=== PATIENT | male | born 2000 | race African-American/Black ===

== ENCOUNTER 2019-07-26 17:48 | Emergency (ER) | payer SELFPAY ==
[2019-07-26 17:53] VITALS: BP 145/66
--- NOTE | 2019-07-26 18:06 | ER Document Report ---
HPI - HPI Patient complains to provider of: Avulsion Time Seen by Provider: 07/26/19 17:57 Context: 18-year-old male presented to ED for a skin avulsion to the tip of the right fifth finger while slicing sweet potatoes. He is alert oriented respirations regular nonlabored speaking in full sentences. He states his tetanus shot was last year. Associated Symptoms: Other - Skin avulsion right fifth fingertip Exacerbated by: Movement Relieved by: Denies Similar symptoms previously: No Recently seen / treated by doctor: No - ROS ROS below otherwise negative: Yes - CONSTITUTIONAL Constitutional: DENIES: Fever, Chills - EENT EENT: DENIES: Sore Throat, Ear Pain, Nasal Drainage-Clear, Nasal Drainage- Purulent, Congestion, Eye problems - NEURO Neurology: DENIES: Headache, Weakness, Vision blurred, Dizzinesss / Vertigo - CARDIOVASCULAR Cardiovascular: DENIES: Chest pain - RESPIRATORY Respiratory: DENIES: Trouble Breathing, Coughing - GASTROINTESTINAL Gastrointestinal: DENIES: Abdominal Pain, Nausea, Patient vomiting, Diarrhea, Constipation, Black / Bloody Stools - URINARY Urinary: DENIES: Dysuria, Urgency, Frequency - REPRODUCTIVE Reproductive: DENIES: :, Postmenopausal, Abnormal bleeding / discharge - MUSCULOSKELETAL Musculoskeletal: REPORTS: Extremity pain - Skin avulsion right fifth fing - DERM Skin Color: Normal Skin Problems: Laceration - Skin avulsion right fifth fingertip Past Medical History - General Information source: Patient - Social History Smoking Status: Current Every Day Smoker Cigarette use (# per day): Yes - 4 cigarettes a day Smoking Education Provided: Yes - 4 minutes Frequency of alcohol use: None Drug Abuse: None Occupation: Construction Lives with: Parents Family History: Hypertension Patient has suicidal ideation: No Patient has homicidal ideation: No - Past Medical History Cardiac Medical History: Reports: None Pulmonary Medical History: Reports: None EENT Medical History: Reports: None Neurological Medical History: Reports: None Endocrine Medical History: Reports: None Renal/ Medical History: Reports: None Malignancy Medical History: Reports None GI Medical History: Reports: None Musculoskeletal Medical History: Reports None Skin Medical History: Reports None Psychiatric Medical History: Reports: None Traumatic Medical History: Reports: Hx Fractures - left arm Infectious Medical History: Reports: None Surgical Hx: Negative Past Surgical History: Reports: None - Immunizations Immunizations up to date: Yes Hx Diphtheria, Pertussis, Tetanus Vaccination: Yes - [employer] 18 Vertical Provider Document - CONSTITUTIONAL Agree With Documented VS: Yes Exam Limitations: No Limitations General Appearance: WD/WN, No Apparent Distress - INFECTION CONTROL TRAVEL OUTSIDE OF THE [place] IN LAST 30 DAYS: No - HEENT HEENT: Atraumatic, Normal ENT Exam, Normocephalic, PERRLA - NECK Neck: Normal Inspection, Supple, Thyroid Normal - RESPIRATORY Respiratory: Breath Sounds Normal, No Respiratory Distress, Chest Non-Tender - CARDIOVASCULAR Cardiovascular: Regular Rate, Regular Rhythm, No Murmur - MUSCULOSKELETAL/EXTREMETIES Musculoskeletal/Extremeties: MAEW, FROM, Tender - Tenderness to the end of the r ight fifth finger due to skin avulsion - NEURO Level of Consciousness: Awake Motor/Sensory: No Motor Deficit, No Sensory Deficit, No Pronator Drift Deep Tendon Reflexes: 2+ - DERM Integumentary: Warm, Dry, Laceration - Skin avulsion tip of right fifth finger Course - Re-evaluation Re-evalutation: 07/26/19 18:14 Skin avulsion to right fifth finger cleaned well with surgical scrub, rinsed with 60 cc of saline. Finger was then dressed with bacitracin and Xeroform then Telfa pad and finger gauze. Patient then had a splint applied to protect the end of the finger. Patient was given instructions on how to care for his finger and he was discharged home. He states that he had a tetanus shot a year ago. - Vital Signs Vital signs: Temp Pulse Resp BP Pulse Ox 98.1 F 91 H 18 145/66 H 100 07/26/19 17:50 07/26/19 17:50 07/26/19 17:50 07/26/19 17:50 07/26/19 17:50 Procedures - Immobilization Right Finger 5th digit Immobilizer type: Finger protection Performed by: CHAPIS Post-Proc Neuro Vasc Exam: Normal Alignment checked and good: Yes - Patient had a skin avulsion the finger splint was put on to protect the end Discharge - Discharge Clinical Impression: Skin avulsion right little finger Condition: Stable Disposition: HOME, SELF-CARE Additional Instructions: Avulsion Injury You have an avulsion injury -- a loss of skin which can't be helped by suturing. When large, these injuries can require skin grafting. Smaller defect s or shallow avulsions usually heal well with dressings. Keep the dressing clean and dry. If the bandage becomes wet, remove it, blot the area dry, and apply a fresh dressing. Change the dressings every day. Complete healing may take anywhere from 10 days to two months. The healing time depends on the size and depth of the avulsion and on the amount of crushing of underlying tissues. Re-examination by the physician is often necessary. If any signs of infection occur (swelling, redness, increasing tenderness, red streaks, profuse purulent drainage from the avulsion, tender lumps in the armpit or groin above the avulsion, or fever), see your doctor immediately. Acetaminophen Acetaminophen may be taken for pain relief or fever control. It's much safer than aspirin, offering a wider range of "safe" dosages. It is safe during . Some brand names are Tylenol, Panadol, Datril, Anacin 3, Tempra, and Liquiprin. Acetaminophen can be repeated every four hours. The following are maximum recommended dosages: WEIGHT Dose Drops Elixir Chewable(80mg) (LBS.) drprs=droppers tsp=teaspoon 6 40 mg .4 ml (1/2) 6-11 80 mg .8 ml (full) 1/2 tsp 1 tab 12-16 120 mg 1 1/2 drprs 3/4 tsp 1 1/2 tabs 17-23 160 mg 2 drprs 1 tsp 2 tabs 24-30 240 mg 3 drprs 1 1/2 tsp 3 tabs 30-35 320 mg 2 tsp 4 tabs 36-41 360 mg 2 1/4 tsp 4 1/2 tabs 42-47 400 mg 2 1/2 tsp 5 tabs 48-53 480 mg 3 tsp 6 tabs 54-59 520 mg 3 1/4 tsp 6 1/2 tabs 60-64 560 mg 3 1/2 tsp 7 tabs 65-70 600 mg 3 3/4 tsp 7 1/2 tabs 71-76 640 mg 4 tsp 8 tabs 77-82 720 mg 4 1/2 tsp 9 tabs 83-88 800 mg 5 tsp 10 tabs >89 pounds or adults 650 mg to 900 mg Acetaminophen can be repeated every four hours. Maximum daily dose not to exceed 4000 mg. These maximum recommended dosages are slightly higher than the dosages written on the product container, but these dosages are very safe and well below the toxic dosage for acetaminophen. Ibuprofen Ibuprofen is an excellent, safe drug for pain control. In addition, it has potent antiinflammatory effects which are beneficial, especially in the treatment of injuries, arthritis, or tendonitis. It's best to take ibuprofen with food. Persons with ulcer disease or allergy to aspirin should notify their physician of this before taking ibuprofen. Take the medication exactly as prescribed. Don't take additional doses unless instructed to do so by your doctor. If you develop wheezing, shortness of breath, hives, faintness, stomach pain, vomiting, or dark black stools, return for re-evaluation at once. Please leave the current dressing on for 48 hours unless you get it wet if you get it wet you have to remove it immediately clean the finger and put a stick proof Band-Aid on with some bacitracin NON-SUTURED LACERATION: Your laceration did not require suturing. Some lacerations cannot be sutured because of increased infection risk, while others simply don't need stitches because they are shallow or very short. Your injury should be protected while it heals. Usually complete healing takes 10 to 14 days. Keep the dressing clean and dry, and change it every day. If you notice increasing pain, redness, swelling, drainage, or tender lumps in the armpit or groin above the injury, infection may be present. You should call the doctor at once. SOAP CLEANSING: Gently wash the wound daily using a mild soap (like Ivory, Phisoderm, Neutrogena). Use warm water, rubbing gently until all debris, ooze, and crusting have been washed from the wound. Allow to dry briefly (about 10 minutes) after cleaning. Repeat this cleansing at least three times a day for the first two days and then once or twice a day. ANTIBIOTIC OINTMENT PROTECTION: Your wounds are such that dressing them is not practical or optional. After cleansing, you should apply a thin coating of antibiotic ointment (Bacitracin, not Neosporin) to the wounds at least three times daily. This lessens infection risk, and may decrease the amount of scarring. Use a q-tip or dull butter knife, not your finger, to apply this ointment. Any debris or ooze which builds up in the ointment should be gently rubbed off with a sterile gauze pad. Harder crusting may need to be gently scrubbed off with a clean wash cloth with soap and warm water, perhaps applying a warm, wet wash cloth to the wound for ten minutes first. Development of redness, severe itching, or blistering may mean allergy to the ointment. See the doctor. Put a splint on your finger to protect your finger if you bump your finger it will hurt. The splint is just protect you from bumping your finger. FOLLOW-UP CARE: Please return in __3___ days for an infection check and dressing change. If you have been referred to another physician for follow-up care, call [facility] physicians office for an appointment as you were instructed. If you experience a significant change in your laceration, or if you are concerned there may be an infection (swelling, redness, drainage, increasing tenderness, red streaks, tender lumps in the armpit or groin above the laceration, or fever), return to the Emergency Department immediately re-evaluation. Forms: Smoking Cessation Education, Return to Work, Elevated Blood Pressure Referrals: SILVIO BROWN PA [Primary Care Provider] - Follow up as needed [facility] [Provider Group] - Follow up as needed [facility] [Provider Group] - Follow up as needed [facility] [Provider Group] - Follow up as needed [facility] [Provider Group] - Follow up as needed
== END 2019-07-26 18:15 | disposition home or self-care (01) ==
LOC: ER 17:48
DX: S61.216A Laceration without foreign body of right little finger without damage to nail, initial encounter (principal); W26.0XXA Contact with knife, initial encounter; Y93.G1 Activity, food preparation and clean up; F17.210 Nicotine dependence, cigarettes, uncomplicated; Z71.6 Tobacco abuse counseling
CPT/HCPCS: 99282; 99406

== ENCOUNTER 2019-10-04 20:26 | Emergency (ER) | payer SELFPAY ==
[2019-10-05 00:10] VITALS: BP 123/61
--- NOTE | 2019-10-05 00:10 | ER Document Report ---
ED General - General Chief Complaint: Sore Throat Stated Complaint: EAR PAIN, NECK PAIN TRAVEL OUTSIDE OF THE [place] IN LAST 30 DAYS: No - HPI Notes: 18-year-old male history of smoking presents with throat pain for 2 days. Patient says he normally smokes "black and milds" but then switched to vaping approximately 1 day prior to arrival. When he uses a vapor he felt pain in the back of his throat immediately but then felt like it got better, woke up the next day and throat was still sore and hurt all day so he came to the ED. Patient denies any cough, shortness of breath, difficulty speaking, change in p.o. intake, other medical history, fever - Related Data Allergies/Adverse Reactions: No Known Allergies Allergy (Verified 05/16/18 14:58) Past Medical History - Social History Smoking Status: Current Every Day Smoker Chew tobacco use (# tins/day): No Frequency of alcohol use: None Drug Abuse: None Family History: Hypertension Patient has homicidal ideation: No Renal/ Medical History: Denies: Hx Peritoneal Dialysis Traumatic Medical History: Reports: Hx Fractures - left arm - Immunizations Immunizations up to date: Yes Hx Diphtheria, Pertussis, Tetanus Vaccination: Yes - [employer] 18 Review of Systems - Review of Systems Notes: REVIEW OF SYSTEMS: CONSTITUTIONAL : Denies fever, chills, or sweats. EENT: Denies recent cold/sinus symptoms, +throat pain CARDIOVASCULAR: Denies chest pain, KATHRIN RESPIRATORY: Denies cough, denies shortness of breath. GASTROINTESTINAL: Denies abdominal pain, nausea/vomiting. GENITOURINARY: Denies difficulty urinating, painful urination. MUSCULOSKELETAL: Denies neck pain, back pain. SKIN: Denies rash or skin lesions. HEMATOLOGIC : Denies easy bruising or bleeding. LYMPHATIC: Denies swollen, enlarged glands. NEUROLOGICAL: Denies headache, denies change in gait. PSYCHIATRIC: Denies anxiety or stress or depression. Physical Exam - Vital signs Vitals: Temp Pulse Resp BP Pulse Ox 98.5 F 116 H 13 125/60 97 10/04/19 20:31 10/04/19 20:31 10/04/19 20:31 10/04/19 20:31 10/04/19 20:31 - Notes Notes: PHYSICAL EXAMINATION: GENERAL: Well-appearing, well-nourished, very comfortable appearing young adult man sitting up in stretcher without any signs of distress or pain HEAD: Atraumatic, normocephalic. EYES: Pupils equal round and appropriate constriction, sclera anicteric, conjunctiva are normal. ENT: nares patent, moist mucous membranes, mild erythema posterior pharynx without any edema or exudates, normal uvula, no swelling in the oropharynx normal voice NECK: Normal range of motion, supple without lymphadenopathy LUNGS: Breath sounds clear to auscultation bilaterally and equal. No wheezes rales or rhonchi. HEART: Regular rate and rhythm without murmurs ABDOMEN: Soft, nontender, no guarding, no masses, no CVAT EXTREMITIES: Normal range of motion, no pitting or edema. No cyanosis. NEUROLOGICAL: Awake, alert, conversing appropriately, moves all extremities spontaneously. PSYCH: Normal mood, normal affect. SKIN: Warm, Dry, normal turgor, no rashes or lesions noted. Course - Re-evaluation Re-evalutation: 10/05/19 03:16 Sore throat consistent with likely very mild thermal burn from switching to a new mechanism of smoking. No analgesia taken prior to ED presentation. Counseled patient on smoking cessation. Gave extensive return to ED precautions and instructed to follow-up with primary doctor outpatient which patient was in agreement with and had no other questions or concerns at time of discharge. - Vital Signs Vital signs: Temp Pulse Resp BP Pulse Ox 99.0 F 93 H 18 123/61 99 10/05/19 00:10 10/05/19 00:10 10/05/19 00:10 10/05/19 00:10 10/05/19 00:10 Discharge - Discharge Clinical Impression: Throat pain Condition: Good Disposition: HOME, SELF-CARE Additional Instructions: Sore Throat Sore throats may be caused by viruses, bacteria, or fungi. Most are due to a virus, and must get better on their own. Bacterial sore throats, particularly those due to "strep," need treatment with antibiotics. If an antibiotic is prescribed, be sure to take the medication for a full 10 days. Failure to take the antibiotic can result in complications such as rheumatic fever. Sometimes, an injection of antibiotics is given instead of pills or liquid. This single "shot" is equal in effectiveness to the oral medication. To relieve symptoms, take acetaminophen for pain. Sip clear liquids frequently, or eat popsicles or ice chips. Anesthetic sprays or lozenges may help. Make sure the air in the room is not too dry. Avoid using decongestants or antihistamines. Call the doctor if there is no improvement in two days, or if you have difficulty breathing, increasing throat pain, high fever, rash, or frequent vomiting. Your sore throat is likely caused by a mild thermal burn from vaping. Use ibuprofen 600 mg every 6 hours for the next few days as needed, stop taking if you have any belly pain. Follow-up with primary doctor within 1 week. If you have any worsening pain, change in voice, swelling, trouble breathing, or any other worsening or alarming symptoms return to ED immediately. Prescriptions: Ibuprofen [Ibu] 600 mg PO Q6HP PRN #15 tablet PRN Reason:
== END 2019-10-05 00:29 | disposition home or self-care (01) ==
LOC: ER 20:26
DX: R07.0 Pain in throat (principal); F17.290 Nicotine dependence, other tobacco product, uncomplicated
CPT/HCPCS: 99282